=== PATIENT | female | born 1955 ===

== ENCOUNTER 2022-07-17 07:45 | Inpatient (IN) | payer OTHER ==
[~2022-07-17] VITALS: Ht 167.6 cm; Wt 83.9 kg
[2022-07-17] MEDS ORDERED: DIOVAN160 M1 PO (09:14)
[2022-07-17] MEDS ORDERED: SYNJARDY 12.5-1 EACH PO (09:15)
[2022-07-17] MEDS ORDERED: GLIMEPIRIDE1 MG (09:15)
[2022-07-17] MEDS ORDERED: RYBELSUS7 MG PO (09:15)
[2022-07-17] MEDS ORDERED: PRAVASTATIN SOD10 MG PO (09:15)
[2022-07-17] MEDS ORDERED: PANTOPRAZOLE SO40 M2 PO (09:16)
[2022-07-17] MEDS ORDERED: FAMOTIDINE (09:17)
[2022-07-19] MEDS ORDERED: FAMOTIDINE40 MG (13:19)
[2022-07-19] MEDS ORDERED: JANUMET XR 50-1 EAC1 (13:19)
[2022-07-19] MEDS ORDERED: OMEGA-3 ACID ETH1 GM (13:20)
== END 2022-07-21 08:30 | disposition home or self-care (01) | DRG 743 ==
LOC: O/R 07-19 07:35 → SURH 07-19 07:45
PROVIDERS: ADMIT Specialist; ATTEND Specialist
PROC: 0UT74ZZ Resection of Bilateral Fallopian Tubes, Percutaneous Endoscopic Approach (ICD-10-PCS; 2022-07-19)
PROC: 0UDB8ZZ Extraction of Endometrium, Via Natural or Artificial Opening Endoscopic (ICD-10-PCS; 2022-07-19)
PROC: 0DNW4ZZ Release Peritoneum, Percutaneous Endoscopic Approach (ICD-10-PCS; 2022-07-19)
PROC: 0TN74ZZ Release Left Ureter, Percutaneous Endoscopic Approach (ICD-10-PCS; 2022-07-19)
PROC: 0UB14ZZ Excision of Left Ovary, Percutaneous Endoscopic Approach (ICD-10-PCS; 2022-07-19)
PROC: 0UT24ZZ Resection of Bilateral Ovaries, Percutaneous Endoscopic Approach (ICD-10-PCS; principal; 2022-07-19 06:15)
DX: D27.0 Benign neoplasm of right ovary (principal); Z20.822 Contact with and (suspected) exposure to COVID-19